=== PATIENT | male | born 1960 | race Caucasian/White ===

== ENCOUNTER 2021-08-16 13:07 | Inpatient (IN) ==
[2021-08-16] MEDS ORDERED: Naloxone 0.4 MG/ML INJ IVP PRN (15:57)
[2021-08-16] MEDS ORDERED: Ondansetron 4 MG/2 ML VIAL IVP PRN (15:57)
[2021-08-16] MEDS ORDERED: *HR* Heparin 5,000 UNIT/ML VIAL IVP PRN (15:59)
[2021-08-16] MEDS ORDERED: *HR* Heparin 5,000 UNIT/ML VIAL IVP ONE (15:59)
[2021-08-16] MEDS ORDERED: Nitroglycerin 0.4 MG TAB.SUBL SL PRN (16:13)
[2021-08-16] MEDS ORDERED: Perflutren Lipid Microsphere 1.3 ML in 0.9 % Sodium Chloride 8.7 ML IVP PRN (16:13)
[2021-08-16 16:51] LABS: Hematocrit 48.2 % (37.5-50.1); Hemoglobin 16.5 g/dL (12.9-16.9); Mean Corpuscular HGB Conc 34.2 g/dL (31.6-35.5); Mean Corpuscular Hemoglobin 30.7 pg (28.0-33.3); Mean Corpuscular Volume 89.6 fL (83.0-100.0); Mean Platelet Volume 9.6 fL (9.4-12.4); Platelet Count 280 K/mcL (140-400); Red Blood Count 5.38 M/mcL (4.19-5.50); Red Cell Distribution Width 12.7 % (11.5-14.5); White Blood Count 10.1 K/mcL (4.3-11.1)
[2021-08-16] MEDS: Heparin 25,000 UNIT/250 ML 25,000 UNIT/250 ML IV.SOLN IVC SCH (16:58)
[2021-08-16 17:04] LABS: Heparin anti-factor XA UFH 0.54 IU/mL (0.30-0.70)
[2021-08-16 17:05] LABS: Prothrombin Time 10.8 Seconds (9.4-12.1)
[2021-08-16] MEDS ORDERED: Ipratropium/Albuterol Neb 3 ML IH PRN (17:21)
[2021-08-16] MEDS ORDERED: Acetaminophen 325 MG TABLET PO ONE (20:03)
[2021-08-17 00:49] LABS: Amphetamine Screen,Urine Negative ng/mL (Cutoff=1000); Barbiturate Screen,Urine Negative ng/mL (Cutoff=200); Benzodiazepines Screen,Urine Negative ng/mL (Cutoff=200); Cannabinoid Screen,Urine Positive ng/mL (Cutoff = 50); Cocaine Screen,Urine Negative ng/mL (Cutoff= 300); Opiate Screen,Urine Negative ng/mL (Cutoff=300); Phencyclidine Screen,Urine Negative ng/mL (Cutoff=25)
[2021-08-17 01:26] LABS: Basophils % 0.3 %; Eosinophils # 0.2 K/mcL (0.0-0.6); Eosinophils % 1.7 %; Hematocrit 41.1 % (37.5-50.1); Immature Granulocytes % 0.4 % (0-4); Lymphocytes # 2.7 K/mcL (0.6-4.6); Lymphocytes % 28.4 %; Mean Corpuscular HGB Conc 35.3 g/dL (31.6-35.5); Mean Corpuscular Hemoglobin 31.4 pg (28.0-33.3); Monocytes # 0.6 K/mcL (0.0-1.3); Monocytes % 6.2 %; Neutrophils # 5.9 K/mcL (1.6-8.9); Platelet Count 247 K/mcL (140-400); Red Blood Count 4.62 M/mcL (4.19-5.50); Red Cell Distribution Width 12.7 % (11.5-14.5); White Blood Count 9.3 K/mcL (4.3-11.1)
[2021-08-17 01:28] LABS: Hemoglobin 14.5 g/dL (12.9-16.9)
[2021-08-17 02:04] LABS: BUN/Creatinine Ratio 12 (6-26); Blood Urea Nitrogen 10 mg/dL (6-20); Calcium 9.3 mg/dL (8.6-10.3); Carbon Dioxide 23 mEq/L (23-29); Chloride 107 mEq/L (98-107); Glucose 91 mg/dL (70-105); Osmolality,Calculated 287 (280-300); Phosphorous 3.4 mg/dL (2.7-4.5); Potassium 3.8 mEq/L (3.5-5.1); Sodium 139 mEq/L (136-145); Troponin I 0.27 ng/mL (< 0.04); eGFR For African Americans > 60 (> 60); eGFR For Non-African Americans > 60 (> 60)
[2021-08-17] MEDS: Aspirin 81 MG TAB.CHEW PO SCH (08:36)
[2021-08-17 09:44] LABS: Chol/HDL Ratio 4.5 (0-4.9); Cholesterol 170 mg/dL (< 200); HDL Cholesterol 38 mg/dL (40-59); LDL Cholesterol,Calculated 92 mg/dL (< 100); Triglycerides 198 mg/dL (< 150)
[2021-08-17] MEDS: *HR* Heparin 5,000 UNIT/ML VIAL IVP PRN ×2 (14:08→21:24)
[2021-08-18] MEDS: Heparin 25,000 UNIT/250 ML 25,000 UNIT/250 ML IV.SOLN IVC SCH ×2 (03:12→16:00)
[2021-08-18] MEDS: *HR* Heparin 5,000 UNIT/ML VIAL IVP PRN (05:07)
[2021-08-18] MEDS: Aspirin 81 MG TAB.CHEW PO SCH (07:20)
[2021-08-18 07:54] LABS: Estimated Average Glucose 126 mg/dl
[2021-08-18 09:22] LABS: Basophils % 0.5 %; Eosinophils # 0.1 K/mcL (0.0-0.6); Eosinophils % 1.2 %; Hematocrit 43.6 % (37.5-50.1); Hemoglobin 15.5 g/dL (12.9-16.9); Immature Granulocytes % 0.3 % (0-4); Lymphocytes # 2.3 K/mcL (0.6-4.6); Mean Corpuscular HGB Conc 35.6 g/dL (31.6-35.5); Mean Corpuscular Hemoglobin 31.3 pg (28.0-33.3); Mean Corpuscular Volume 87.9 fL (83.0-100.0); Mean Platelet Volume 9.8 fL (9.4-12.4); Monocytes # 0.6 K/mcL (0.0-1.3); Monocytes % 6.9 %; Neutrophils # 5.6 K/mcL (1.6-8.9); Platelet Count 244 K/mcL (140-400); Red Blood Count 4.96 M/mcL (4.19-5.50); Red Cell Distribution Width 12.5 % (11.5-14.5); Segmented Neutrophils % 65.1 %; White Blood Count 8.7 K/mcL (4.3-11.1)
[2021-08-18 09:39] LABS: BUN/Creatinine Ratio 12 (6-26); Blood Urea Nitrogen 10 mg/dL (6-20); Calcium 9.2 mg/dL (8.6-10.3); Carbon Dioxide 24 mEq/L (23-29); Chloride 107 mEq/L (98-107); Glucose 107 mg/dL (70-105); Osmolality,Calculated 284 (280-300); Potassium 4.3 mEq/L (3.5-5.1); Sodium 137 mEq/L (136-145); eGFR For African Americans > 60 (> 60); eGFR For Non-African Americans > 60 (> 60)
[2021-08-18] MEDS ORDERED: ISOVUE-370 200 ML INFUS..BTL ONE ×2 (14:08→15:08)
[2021-08-18] MEDS ORDERED: *HR* Midazolam HCl 2 MG/2 ML VIAL ONE (14:08)
[2021-08-18] MEDS ORDERED: Heparin 1,000 UNITS/500 mL 500 ML ONE ×2 (14:08→15:23)
[2021-08-18] MEDS ORDERED: *HR* FentaNYL (PF) 100 MCG/2 ML VIAL ONE (14:08)
[2021-08-18] MEDS ORDERED: *HR* Heparin 10,000 UNIT/10 ML VIAL ONE (14:08)
[2021-08-18] MEDS ORDERED: 0.9 % Sodium Chloride 1,000 ML ONE (14:09)
[2021-08-18] MEDS ORDERED: Nitroglycerin 1,000 MCG/5 ML VIAL IV ONE (14:09)
[2021-08-19 02:48] LABS: Hematocrit 42.7 % (37.5-50.1); Hemoglobin 14.3 g/dL (12.9-16.9)
[2021-08-19 02:59] LABS: BUN/Creatinine Ratio 15 (6-26); Blood Urea Nitrogen 12 mg/dL (6-20); eGFR For African Americans > 60 (> 60); eGFR For Non-African Americans > 60 (> 60)
[2021-08-19] MEDS ORDERED: *HR* Enoxaparin 40 MG/0.4 ML SYRINGE SQ SCH (06:00)
[2021-08-19 06:57] VITALS: BP 122/76; PULSE 79; TEMP 98.1; O2SAT 98
[2021-08-19] MEDS: Aspirin 81 MG TAB.CHEW PO SCH (08:16)
[2021-08-19] MEDS ORDERED: Aspirin 81 MG TAB.CHEW PO SCH (09:00)
== END 2021-08-19 11:57 | disposition home or self-care (01) | DRG 174 ==
LOC: 3BNU → SUATTDRO 15:15
PROVIDERS: ADMIT Pharmacist; ATTEND Registered Nurse